=== PATIENT | male | born 1960 | race Caucasian/White ===

== ENCOUNTER → 2016-07-31 | Outpatient (CLI) | payer BC ==
--- NOTE | 2016-07-31 12:06 | DX ---
Chest, Two Views - July 31, 2016 at 1121 hours History: Acute bronchitis Comparison: February 2013 Findings: Cardiac silhouette is within normal range. Mild bilateral peribronchial thickening. No pneu monia, congestive heart failure, pleural effusion, or pneumothorax. Impression: 1. Bronchitis. 2. No definite pneumonia.
== END ==
LOC: CIMAGING 11:04
PROVIDERS: ATTEND Family Medicine
DX: J20.9 Acute bronchitis, unspecified (principal)
CPT/HCPCS: 71020-PO

== ENCOUNTER → 2016-11-20 | Outpatient (CLI) | payer BC, OTHER | LOC: FIMAGING 11:06 | PROVIDERS: ATTEND Family Medicine | DX: M25.561 Pain in right knee (principal); G89.29 Other chronic pain; M23.91 Unspecified internal derangement of right knee; M23.41 Loose body in knee, right knee; M24.10 Other articular cartilage disorders, unspecified site ==